=== PATIENT | female | born 1995 | race Caucasian/White ===

== ENCOUNTER 2022-05-23 14:21 | Inpatient (IN) | payer OTHER ==
[~2022-05-23] VITALS: Ht 162.6 cm; Wt 76.4 kg
[2022-05-28] VITALS (45 sets, daily range): BP systolic 93–140; BP diastolic 52–79; PULSE 81–114; TEMP 97.9–98.7
--- NOTE | 2022-05-28 06:25 | NUR ---
984286.4, G3L2 arrives on unit for scheduled IOL. Ambluatory to LDR5. Oriented to room and plan of care. Reports normal movement. Denies any LOF, VB, or regular contractions. Changes into clean gown. 0642EFM explained and placed x2. Tracing well. VS obtained. Assessment completed. 0650IV to left hand using clean technique. Routine labs obtained. IVF infusing well. 0702Pitocin explained and started at 2mu per orders. Plan of care reviewed with patient and spouse who verbalize understanding. Resting with call light within reach.
[2022-05-28] MEDS ORDERED: TYLENOL 500MG500 MG PO (07:17)
[2022-05-28] MEDS ORDERED: FIORICET 325 MG1 TA1 PO (07:17)
[2022-05-28] MEDS ORDERED: SLOW FE142 MG PO (07:18)
[2022-05-28] MEDS ORDERED: PRENATAL TABLET PO (07:18)
[2022-05-28 08:08] LABS: BASO % 0.3 % (0.0-2.0); EOS # 0.1 K/mm3 (0.0-0.7); EOS % 0.9 % (0.0-4.0); GRAN # 10.9 K/mm3 (1.4-6.5); GRAN % 75.9 % (42.2-75.2); LYMPH # 1.7 K/mm3 (1.2-3.4); LYMPH % 11.9 % (20.0-51.0); MEAN CELL VOLUME 80 fl (80.0-100.0); MEAN CORPUSCULAR HEMOGLOBIN 25 pg (27-31); MEAN CORPUSCULAR HGB CONC 31 g/dl (33.0-37.0); MEAN PLATELET VOLUME 11.8 fl (7.4-10.4); MONO # 1.4 K/mm3 (0.1-0.6); MONO % 9.7 % (1.7-9.3); PLATELET COUNT 262 K/mm3 (130-400); RED BLOOD COUNT 4.04 M/mm3 (4.10-5.30); REDCELL DISTRIBUTION WIDTH-CV 17.6 % (11.5-14.5)
[2022-05-28 08:14] LABS: HEMATOCRIT 32.3 % (37.0-47.0)
--- NOTE | 2022-05-28 09:14 | NUR ---
0914Dr. Do on unit and reviews strips. To bedside and reviews plan of care with pt and spouse. AROM at this time by Dr. Do for small amont of clear amniotic fluid. SVE per provider /. Kim care provided and patient wedge right.
--- NOTE | 2022-05-28 11:52 | NUR ---
1152Patient requesting epidural. Alfonso Harrell FINANCIAL SERVICES EDUCATION CONSULTANT notified. LR bolus infusing. 1200 Alfonso Kaur FINANCIAL SERVICES EDUCATION CONSULTANT to bedside for epidural placement. Pt to edge of bed. FHR tracing intermittently due to maternal position. RN remains at bedside adj. EFM. 1207Epidural placed and single shot at this time by Alfonso Harrell CRNA. See anesthesia record. 1214Patient wedge left. Plan of care and safety precautions reviewed with patient who verbalizes understanding. Resting with call light within reach.
--- NOTE | 2022-05-28 13:00 | NUR ---
DR. BHAT AT BEDSIDE, [facility] [place] /-2. DR. BHAT REVIEWS STRIPS AND PLAN OF CARE WITH PATIENT.
--- NOTE | 2022-05-28 14:25 | NUR ---
1425RN to bedside to reposition pt. Pt reports increased intermittent pressure. Bloody show noted. 1428SVE C/0. Kim care provided and patient positioned semifowlers. 1433DrSimon Do updated on pt. See physician notification. 1440DrSimon Do to bedside for delivery. Catheter removed. 1442 Patient instructed on pushing with contractions. Verbalizes understanding. Begins to push with ctx with Dr. Do and RN at bedside. Strong maternal effort. Moves vertex well. 1445Spontaneous vaginal delivery of viable male infant. Nuchal cord x1 clamped x2, and reduced on perineum. To mother's chest where dried and stimulated by nursery Rn. Care of assumed by Aristides Villatoro Rn. 1449Spontaneous and intact delivery of placenta. Large amount of lochia noted.Dr. Do remains at bedside. LR bolus infusing. Fudal massage by Dr. Do. 1455Methergine 0.2mg IM at this time. See emar. Bleeding minimal at this time. Kim care provided. Pads changed. Pt repositioned in bed. 1500Fundus firm, midline, and bleeding minimal. Plan of care and safety precautions reviewed with pt and spouse who verbalize understanding. Call light within reach.
--- NOTE | 2022-05-28 15:50 | NUR ---
1550Fundus firm, midline, freeflow noted with check. 2 ivanof bay size clots expressed with fundal check. Pads changed. 1600Dr. Hi updated on pt. See physician notificaiton.
--- NOTE | 2022-05-28 17:45 | NUR ---
1745Patient assisted to edge of bed. Denies any dizziness/lightheadedness. Unable to bear weight to right leg. Pivot to wheelchair. To bathroom and pivot to toilet. Voids without difficulty. Kim care provied, gown changed, ice pack to perineum. To room 212 via wheelchair. Oriented to room and plan of care. Instructed to call for assistance for next void; verbalizes understanding. Resting with call light within reach.
[2022-05-29 04:00] VITALS: BP 107/61; PULSE 81; TEMP 98
--- NOTE | 2022-05-29 06:20 | NUR ---
REPORT RCVD FROM KINSEY CYR. PATIENT IS IN BED WITH SLEEPING AT THIS TIME.
[2022-05-29 07:32] VITALS: BP 104/63; PULSE 75; TEMP 97.9
--- NOTE | 2022-05-29 07:43 | NUR ---
PT TO THE BATHROOM AT THIS TIME. CALLED FOR ASSISTANCE. SHE HAD A KIWI SIZED CLOT WEIGHING 63 GRAMS. NO OTHER CONCERNS AT THIS TIME.
[2022-05-29] MEDS ORDERED: IBU600 MG PO (09:02)
--- NOTE | 2022-05-29 09:16 | NUR ---
Initial visit attempt; Hearing test being administered to son. Addiction Psychiatrist left card of congratulations and God's blessings for his and information regarding the availability of [facility] at [facility].
--- NOTE | 2022-05-29 09:30 | NUR ---
DR. BHAT ROUNDING ON PATIENT, NOTIFIED OF RECENT 69ML CLOT PASSED WITH MORNING VOID. FUNDUS FIRM. MATERNAL VSS. NO FURTHER BLEEDING AT THIS TIME.
[2022-05-29 10:52] LABS: HEMATOCRIT 27.9 % (37.0-47.0); HEMOGLOBIN 8.5 g/dl (12.5-16.0)
--- NOTE | 2022-05-29 11:10 | NUR ---
1110- Fundal check by this RN, peripad with scant bleeding, fundus firm, D1, no free flow or clots noted with massage. Pt encouraged to empty bladder frequently and update staff with any abnormal bleeding. Pt verbalizes understanding.
[2022-05-29 12:45] VITALS: BP 94/58; PULSE 91; TEMP 98.7
[2022-05-29 16:45] VITALS: BP 96/56; PULSE 83; TEMP 98.4
--- NOTE | 2022-05-29 18:45 | NUR ---
1845 DRESSED. WAITING FOR DISCHARGE INFORMATION TO GO HOME 1909 DISCHARGE INSTRUCTIONS GIVEN WITH NO QUESTIONS. HOME PER AMB ACC BY AND .
== END 2022-05-29 19:10 | disposition home or self-care (01) | DRG 807 ==
LOC: LDR 05-28 06:21 → OB 05-28 09:56
PROVIDERS: Obstetrics & Gynecology; ADMIT Obstetrics & Gynecology
PROC: 10E0XZZ Delivery of Products of Conception, External Approach (ICD-10-PCS; principal; 2022-05-28)
PROC: 3E033VJ Introduction of Other Hormone into Peripheral Vein, Percutaneous Approach (ICD-10-PCS; 2022-05-28)
DX: O99.02 Anemia complicating childbirth (principal); Z37.0 Single live birth; D64.9 Anemia, unspecified; O69.81X0 Labor and delivery complicated by cord around neck, without compression, not applicable or unspecified; Z3A.39 39 weeks gestation of pregnancy; Z86.16 Personal history of COVID-19; Z23 Encounter for immunization
CPT/HCPCS: J2210; J2590; J2795; J7120